=== PATIENT | male | born 1960 | race Caucasian/White ===

== ENCOUNTER 2018-10-21 06:54 | Emergency (ER) | payer OTHER ==
[~2018-10-21] VITALS: Ht 170.2 cm; Wt 77.1 kg
[2018-10-21] MEDS ORDERED: BACTRIM 400-801 EACH PO (11:58)
[2018-10-21] MEDS ORDERED: PYRIDIUM200 MG PO (11:59)
== END 2018-10-21 14:11 | disposition home or self-care (01) ==
LOC: ER 06:54
DX: B34.9 Viral infection, unspecified (principal)